=== PATIENT | female | born 1990 | race Caucasian/White ===

== ENCOUNTER 2019-12-09 09:21 | Emergency (ER) | payer SELFPAY ==
--- NOTE | 2019-12-09 09:45 | EDPHYS ---
Physician Documentation [facility] Name: Janette Neves Age: 29 yrs Sex: Female : 1990 Arrival Date: 12/09/2019 Time: 09:22 Bed 5 Private MD: ED Physician Slick Malin HPI: 12/08 09:29 This 29 yrs old Female presents to ER via Unassigned with complaints of Dog rn Bite. 09:29 The patient was bitten on the left leg. Onset: The symptoms/episode began/occurred just rn prior to arrival. Animal information: Patient/Caregiver unable to provide information related to the animal. Secondary to the bite the patient reports an abrasion, Severity of symptoms: At their worst the symptoms were mild, in the emergency department the symptoms are unchanged. The patient has not experienced similar symptoms in the past. Reports going for a run, bitten by dog, unknown vaccine status, was wearing pants, small abrasions to left thigh. . Historical: - Allergies: :32 No Known Allergies; sv - PMHx: :32 None; sv - PSHx: :32 ; sv - Immunization history:: Adult Immunizations up to date. - Social history:: Smoking status: Patient denies any tobacco usage or history of. - Family history:: not pertinent. - Hospitalizations: : No recent hospitalization is reported. ROS: 09:29 Constitutional: Negative for fever, chills, and weight loss, MS/Extremity: + dog bite rn to left thigh Skin: + abrasions and puncture wound to left thigh Exam: 09:29 Constitutional: This is a well developed, well nourished patient who is awake, alert, rn and in no acute distress. Ambulatory to room without difficulty or assistance. Skin: Warm, dry, no evidence of cellulitis, several superficial abrasions and single superficial skin avulsion left lateral thigh, no foreign bodies, no active bleeding. + surrounding contusion of area. Vital Signs: 09:30 Pulse 77; Resp 18; Temp 98.6; Pulse Ox 99% ; Weight 79.38 kg; Height 5 ft. 8 in. sv (172.72 cm); 09:30 Body Mass Index 26.61 (79.38 kg, 172.72 cm) sv MDM: 09:25 Patient medically screened. rn 09:29 Differential diagnosis: dog bite, abrasion, contusion. rn 09:29 Data reviewed: vital signs, nurses notes, and as a result, I will discharge patient. rn Counseling: I had a detailed discussion with the patient and/or guardian regarding: the historical points, exam findings, and any diagnostic results supporting the discharge/admit diagnosis, the need for outpatient follow up, to return to the emergency department if symptoms worsen or persist or if there are any questions or concerns that arise at home. Special discussion: I discussed with the patient/guardian in detail that at this point there is no indication for admission to the hospital. It is understood, however, that if the symptoms persist or worsen the patient needs to return immediately for re-evaluation. ED course: Very superficial abrasions/skin tear, wounds cleaned and dressed, will dc home with local wound care and abx. Return precautions given and understood. . 09:54 ED course: Report filed and dog captured. . rn Administered Medications: No medications were administered Disposition: 12/09/19 09:44 Discharged to Home. Impression: Bitten by dog. - Condition is Stable. - Discharge Instructions: Wound Care, Animal Bite. - Prescriptions for Augmentin 875- 125 mg Oral Tablet - take 1 tablet by ORAL route every 12 hours for 10 days; 20 tablet. - Medication Reconciliation Form, Thank You Letter, Antibiotic Education, Prescription Opioid Use form. - Follow up: Private Physician; When: As needed; Reason: Recheck today's complaints, Re-evaluation by your physician. - Problem is new. - Symptoms have improved. Signatures: Janette Rea RN RN sv Nieto, Roman, MD MD rn Leal, Jahala, RN RN jl7 Corrections: (The following items were deleted from the chart) 09:34 09:29 Constitutional: This is a well developed, well nourished patient who is awake, rn alert, and in no acute distress. Ambulatory to room without difficulty or assistance. Skin: Warm, dry, no evidence of cellulitis, several superficial abrasions and single superficial skin avulsion left lateral thigh, no foreign bodies, no active bleeding. rn 09:57 09:44 12/09/2019 09:44 Discharged to Home. Impression: Bitten by dog. Condition is jl7 Stable. Forms are Medication Reconciliation Form, Thank You Letter, Antibiotic Education, Prescription Opioid Use. Follow up: Private Physician; When: As needed; Reason: Recheck today's complaints, Re-evaluation by your physician. Problem is new. Symptoms have improved. rn
--- NOTE | 2019-12-09 09:45 | ER ---
Nurse's Notes [facility] Name: Janette Neves Age: 29 yrs Sex: Female : 1990 Arrival Date: 12/09/2019 Time: 09:22 Bed 5 Private MD: Diagnosis: Bitten by dog Presentation: 12/08 09:30 Chief complaint: Patient states: was getting ready for a run and her neighbors dog sv (Prydeinig Hinds) bit her on her left upper thigh. She has called animal control. Coronavirus screen: Proceed with normal triage. Patient denies a cough. Patient denies shortness of breath or difficulty breathing. Patient denies measured and/or subjective temperature greater than 100.4F prior to today's visit. Patient denies travel on a cruise ship or to a country the [facility] currently lists as an affected area. Patient denies contact with known and/or suspected case of COVID-19. Ebola Screen: No symptoms or risks identified at this time. Initial Sepsis Screen: Does the patient meet any 2 criteria? No. Patient's initial sepsis screen is negative. Does the patient have a suspected source of infection? Yes: Skin breakdown/wound. Risk Assessment: Do you want to hurt yourself or someone else? Patient reports no desire to harm self or others. Onset of symptoms was December 09, 2019. 09:30 Method Of Arrival: Ambulatory sv 09:30 Acuity: CHANDU 4 sv Triage Assessment: 09:32 Bite description: bite sustained to lateral aspect of left thigh is from animal, was sv sustained 30-60 minutes ago. by a dog, animal information: vaccination(s) is unknown, was sustained 30-60 minutes ago. Animal control has been notified. General: Appears in no apparent distress. uncomfortable, Behavior is calm, cooperative, appropriate for age. Pain: Complains of pain in left leg. Neuro: Level of Consciousness is awake, alert, obeys commands, Oriented to person, place, time, situation, Gait is steady. Respiratory: Respiratory effort is even, unlabored, Respiratory pattern is regular, symmetrical. Derm: Skin is pink, warm \T\ dry. Historical: - Allergies: 09:32 No Known Allergies; sv - PMHx: 09:32 None; sv - PSHx: :32 ; sv - Immunization history:: Adult Immunizations up to date. - Social history:: Smoking status: Patient denies any tobacco usage or history of. - Family history:: not pertinent. - Hospitalizations: : No recent hospitalization is reported. Screenin:35 Abuse screen: Denies threats or abuse. Denies injuries from another. Nutritional sv screening: No deficits noted. Tuberculosis screening: No symptoms or risk factors identified. Fall Risk None identified. Assessment: 09:34 Reassessment: Called [place] [employer] to confirm that they were called regarding the dog bite. sv They stated that she did call. Vital Signs: 09:30 Pulse 77; Resp 18; Temp 98.6; Pulse Ox 99% ; Weight 79.38 kg; Height 5 ft. 8 in. sv (172.72 cm); 09:30 Body Mass Index 26.61 (79.38 kg, 172.72 cm) sv ED Course: 09:22 Patient arrived in ED. ag5 09:25 Alfred Brandon RN is Primary Nurse. jl7 09:25 Slick Malin MD is Attending Physician. rn 09:31 Triage completed. sv 09:32 Arm band placed on. sv 09:35 Patient has correct armband on for positive identification. Bed in low position. Call sv light in reach. Pulse ox on. NIBP on. Door closed. Head of bed elevated. 09:40 Wound care: to puncture located on lateral aspect of left thigh was cleaned with jl7 Hibiclens, irrigated with normal saline, dressed with Neosporin, non-stick gauze, ice pack applied. Patient tolerated well. 09:55 No provider procedures requiring assistance completed. Patient did not have IV access jl7 during this emergency room visit. Administered Medications: No medications were administered Outcome: 09:44 Discharge ordered by . rn 09:56 Discharged to home ambulatory. jl7 09:56 Condition: stable 09:56 Discharge instructions given to patient, Instructed on discharge instructions, follow up and referral plans. medication usage, wound care, Demonstrated understanding of instructions, follow-up care, medications, wound care, Prescriptions given X 1. 09:57 Patient left the ED. jl7 Signatures: Janette Rea RN RN sv Nieto, Roman, MD MD rn Leal, Jahala, RN RN jl7 Antoinette Allison 5
[2019-12-09 10:02] VITALS: TEMP 98.6; O2SAT 99
== END 2019-12-09 09:57 | disposition home or self-care (01) ==
LOC: ER 09:21
DX: S70.312A Abrasion, left thigh, initial encounter (principal); W54.0XXA Bitten by dog, initial encounter; Y93.02 Activity, running; Y92.9 Unspecified place or not applicable
CPT/HCPCS: 99284